=== PATIENT | male | born 1935 | race Caucasian/White ===

== ENCOUNTER → 2019-02-25 12:20 | Outpatient (CLI) | payer MEDICARE, OTHER ==
[2012-07-15 07:24] VITALS: BMI 24.0
== END | disposition home or self-care (01) ==
LOC: D.HCCECHO 12:20 → D.HCCARDIO 13:00
PROVIDERS: ATTEND Internal Medicine Cardiovascular Disease
DX: I34.0 Nonrheumatic mitral (valve) insufficiency (principal)